=== PATIENT | male | born 1960 | race Caucasian/White ===

== ENCOUNTER 2016-11-24 18:00 | Emergency (ER) | payer OTHER ==
[~2016-11-24] VITALS: Ht 175.3 cm; Wt 95.3 kg
[2016-11-24 18:25] VITALS: BP 145/89
[2016-11-24] MEDS ORDERED: METFORMIN HCL500 M3 PO (18:50)
[2016-11-24] MEDS ORDERED: DEXILANT60 M1 PO (18:50)
[2016-11-24] MEDS ORDERED: ANASTROZOLE1 M1 PO (18:51)
[2016-11-24] MEDS ORDERED: TESTOSTERO200 MG/11 IM (18:51)
[2016-11-24] MEDS ORDERED: FAMOTIDINE40 M1 PO (18:52)
[2016-11-24] MEDS ORDERED: MULTI-DAY VITA1 EACH PO (18:53)
[2016-11-24] MEDS ORDERED: OMEPRAZOLE20 M3 PO (18:53)
[2016-11-24] MEDS ORDERED: CORAL CALCIUM1 EACH PO (18:53)
[2016-11-24] MEDS ORDERED: PROBIOTIC1 EACH PO (18:54)
[2016-11-24] MEDS ORDERED: OMEGA 3-6-9 11200 MG PO (18:54)
[2016-11-24] MEDS ORDERED: AMINO ACID1 EACH PO (18:54)
--- NOTE | 2016-11-24 19:17 | ED UPPER/LOWER EXTREMITY COMPL ---
History of Present Illness General Chief Complaint: Lower Extremity Problems Stated Complaint: SIB BY DR MATHEWS R/O BLOOD CLOT IN LEGS Source: patient, family Exam Limitations: no limitations Vital Signs & Intake/Output Vital Signs & Intake/Output Vital Signs Date Time Temp Pulse Resp B/P Pulse O2 O2 Flow FiO2 Ox Delivery Rate 11/24 1825 98.9 81 20 145/89 96 Room Air Allergies Coded Allergies: No Known Allergies (11/24/16) Reconcile Medications Amino Acids (Amino Acid) (Unknown Strength) CAPSULE (Unknown Dose) PO DAILY SUPPLEMENT (Reported) Anastrozole 1 MG TABLET 1 TAB PO DAILY ANTI-ESTROGEN (Reported) Calcium/Mag Oxide/Vitamin D3 (Coral Calcium 1,000 MG Cap) (Unknown Strength) CAPSULE (Unknown Dose) PO DAILY SUPPLEMENT (Reported) Dexlansoprazole (Dexilant) 60 MG CAP.BP 1 CAP PO DAILY MARY GRACE (Reported) Famotidine 40 MG TABLET 1 TAB PO QPM MARY GRACE (Reported) Fish Oil/Borage/Flax/Om3,6,9#1 ([place] 3-6-9 1,200 MG Softgel) (Unknown Strength) CAPSULE (Unknown Dose) PO DAILY SUPPLEMENT (Reported) Gabapentin 100 MG CAPSULE 1 CAP PO TID inflammation Ibuprofen 600 MG TABLET 1 TAB PO TID PRN pain with food Lactobacillus Acidophilus (Probiotic) (Unknown Strength) CAPSULE (Unknown Dose ) PO DAILY SUPPLEMENT (Reported) Metformin HCl 500 MG TABLET 1 TAB PO DAILY DM (Reported) Multivitamin (Multi-Day Vitamins) 1 EACH TABLET 1 TAB PO DAILY SUPPLEMENT ( Reported) Omeprazole 20 MG TABLET. 1 TAB PO DAILY MARY GRACE (Reported) Testosterone Enanthate 200 MG/ML VIAL 200 MG IM QMON HRT (Reported) Triage Note: TRIAGE: PT SENT TO ER BY DR MATHEWS TO R/O BLOOD CLOT. C/C PAIN TO BACK OF BILATERAL LEGS X 4 DAYS, INTERMITTENT SINCE ONSET, R LEG WORSE THAN L LEG. PT IS TAKING TESTOSTERONE FOR LOW T CELL COUNT X 1 YEAR AND WAS TOLD BY DR MATHEWS THAT IT COULD CAUSE BLOOD CLOTS. Triage Nurses Notes Reviewed? yes HPI: 56-year-old male arrived to triage room 7 for evaluation of bilateral thigh pain , numbness and tingling that he's had for the past 4 days. He reports that this numbness and tingling is in the back of his left thigh that gets worse when he is sitting. 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 It is gotten worse the past day so he called Dr. Mathews who told him to come to the ED for evaluation of DVT. He is currently on testosterone replacement and Dr. Mathews was concerned of clots. The patient has a history of low testosterone and Eaton's esophagus but no high blood pressure, cholesterol, heart kidney or lung issues. He does have a history of borderline diabetes on metformin for the past 5 years. He denies any back pain chest pain. He denies any swelling or redness in his legs. He does not smoke. (WILIAN LANG APRN) Past History Travel History Traveled to [place] past 21 day No Medical History Any Pertinent Medical History? 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 No (WILIAN LANG APRN) Review of Systems Review of Systems Constitutional: Reports: no symptoms. EENTM: Reports: no symptoms. Respiratory: Reports: no symptoms. Cardiovascular: Reports: no symptoms. Gastrointestinal/Abdominal: Reports: no symptoms. Genitourinary: Reports: no symptoms. Musculoskeletal: Reports: see HPI. Skin: Reports: no symptoms. Neurological/Psychological: Reports: see HPI, numbness, paresthesia. Hematologic/Endocrine: Reports: no symptoms. Immunological: Reports: no symptoms. All Other Systems: Reviewed and Negative (WILIAN LANG APRN) Physical Exam Physical Exam General Appearance: well developed/nourished, mild distress Head: atraumatic Eyes: Bilateral: PERRL, EOMI. Ears, Nose, Throat: normal pharynx, normal ENT inspection, hearing grossly normal Neck: normal inspection, supple Cardiovascular/Respiratory: regular rate/rhythm Back: normal inspection Leg Left: normal range of motion, normal inspection Leg Right: normal range of motion, normal inspection Hip Left: normal range of motion, normal inspection Hip Right: normal range of motion, normal inspection Knee Left: normal range of motion, normal inspection Knee Right: normal range of motion, normal inspection Foot Left: normal inspection, normal range of motion Foot Right: normal inspection, normal range of motion Skin: intact, normal color, warm/dry Lymphatic: no anterior cervical karen (WILIAN LANG APRN) Progress Differential Diagnosis: neuropathy Plan of Care: Ibuprofen 600 mg 3 times a day for 3 days please take with food if not any better and can start gabapentin 100 mg twice a day and follow up with Dr. Gonzalez. There is no signs of DVT, no swelling erythema Or thigh tenderness on palpation. More numbness tingling in thigh (WILIAN LANG APRN) Departure Departure Time of Disposition: 1927 Disposition: HOME OR SELF CARE Condition: Stable Clinical Impression Primary Impression: Neuropathy Referrals: TORI CHRISTIANSON,RAMAKRISHNA Carmen (PCP/Family) Additional Instructions: Ibuprofen 600 mg 3 times a day for pain. Please take with food. If pain is not better after taking ibuprofen please start gabapentin 100 mg 3 times a day and call Dr. Gonzalez for follow-up visit. Return to the emergency department for any swelling, erythema to either leg. 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 Departure Forms: Customer Survey General Discharge Information Prescriptions: Current Visit Scripts Ibuprofen 1 TAB PO TID PRN pain #30 TAB with food Gabapentin 1 CAP PO TID #60 CAP (WILIAN LANG APRN) PA/SCHEME TECHNICIAN Co-Sign Statement Statement: ED Attending supervision documentation- [] I saw and evaluated the patient. I have also reviewed all the pertinent lab results and diagnostic results. I agree with the findings and the plan of care as documented in the PA's/SCHEME TECHNICIAN's documentation. x I have reviewed the ED Record and agree with the PA's/SCHEME TECHNICIAN's documentation. [] Additions or exceptions (if any) to the PAs/SCHEME TECHNICIAN's note and plan are summarized below: [] (PATRICIO CHRISTIANSON,GEOVANI)
[2016-11-24] MEDS ORDERED: GABAPENTIN100 M2 PO (19:29)
[2016-11-24] MEDS ORDERED: IBUPROFEN600 M1 PO (19:29)
== END 2016-11-24 19:37 ==
LOC: ERH 18:00
DX: G62.9 Polyneuropathy, unspecified (principal)

== ENCOUNTER 2018-04-05 12:02 | Emergency (ER) | payer OTHER ==
[~2018-04-05] VITALS: Ht 175.3 cm; Wt 95.3 kg
[~2018-04-05 12:02] MED LIST: AMINO ACID1 EACH PO; ANASTROZOLE1 M1 PO; CORAL CALCIUM1 EACH PO; DEXILANT60 M1 PO; FAMOTIDINE40 M1 PO; GABAPENTIN100 M2 PO; IBUPROFEN600 M1 PO; METFORMIN HCL500 M3 PO; MULTI-DAY VITA1 EACH PO; OMEGA 3-6-9 11200 MG PO; OMEPRAZOLE20 M3 PO; PROBIOTIC1 EACH PO; TESTOSTERO200 MG/11 IM
[2018-04-05 12:06] VITALS: BP 139/92
--- NOTE | 2018-04-05 12:24 | ED UPPER/LOWER EXTREMITY COMPL ---
History of Present Illness General Chief Complaint: Lower Extremity Problems Stated Complaint: PER PT "FELT MY LEFT CALF POP CANT WALK" X 1 DAY Source: patient, old records Exam Limitations: no limitations Vital Signs & Intake/Output Vital Signs & Intake/Output Vital Signs Date Time Temp Pulse Resp B/P B/P Pulse O2 O2 Flow FiO2 Mean Ox Delivery Rate 04/05 1206 98.1 76 18 139/92 97 Room Air Allergies Coded Allergies: No Known Allergies (11/24/16) Reconcile Medications Amino Acids (Amino Acid) (Unknown Strength) CAPSULE (Unknown Dose) PO DAILY SUPPLEMENT (Reported) Anastrozole 1 MG TABLET 1 TAB PO DAILY ANTI-ESTROGEN (Reported) Calcium/Mag Oxide/Vitamin D3 (Coral Calcium 1,000 MG Cap) (Unknown Strength) CAPSULE (Unknown Dose) PO DAILY SUPPLEMENT (Reported) Dexlansoprazole (Dexilant) 60 MG CAP.BP 1 CAP PO DAILY MARY GRACE (Reported) Famotidine 40 MG TABLET 1 TAB PO QPM MARY GRACE (Reported) Fish Oil/Borage/Flax/Om3,6,9#1 ([place] 3-6-9 1,200 MG Softgel) (Unknown Strength) CAPSULE (Unknown Dose) PO DAILY SUPPLEMENT (Reported) Gabapentin 100 MG CAPSULE 1 CAP PO TID inflammation Ibuprofen 600 MG TABLET 1 TAB PO TID PRN pain with food Lactobacillus Acidophilus (Probiotic) (Unknown Strength) CAPSULE (Unknown Dose ) PO DAILY SUPPLEMENT (Reported) Metformin HCl 500 MG TABLET 1 TAB PO DAILY DM (Reported) Multivitamin (Multi-Day Vitamins) 1 EACH TABLET 1 TAB PO DAILY SUPPLEMENT ( Reported) Omeprazole 20 MG TABLET. 1 TAB PO DAILY MARY GRACE (Reported) Testosterone Enanthate 200 MG/ML VIAL 200 MG IM QMON HRT (Reported) Triage Note: PT TO ER C/C 1 DAY HX OF LEFT CALF PAIN, STATES WAS "PUSHING SOMETHING" AND FELT A POP. PAIN 10/10 WITH STANDING. PT WAS SENT TO ED BY URGENT CARE FOR U/S Triage Nurses Notes Reviewed? yes Onset: Abrupt Duration: day(s): (2), constant Timing: recent history Severity: moderate Severity Numbers: 6 Pain/Injury Location: Left: Leg. Associated Symptoms: denies HPI: 57-year-old male history of reflux, prediabetes, testicular cancer presents to ER for evaluation sent in by urgent care complaining of left calf pain. The patient was pushing a tractor yesterday when he had a sudden sharp shooting pain in his left calf that has been persistent since. It is worse with weightbearing and plantarflexion of the foot.. He is able to bear weight however with pain to the calf. No knee hip or back pain no numbness or tingling. He is not taken anything for his symptoms he has been putting ice on with little effect (Osman De La Torre) Past History Travel History Traveled to [place] past 21 day No Medical History Any Pertinent Medical History? 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 No (Osman De La Torre) Review of Systems Review of Systems Constitutional: Reports: see HPI. Comments Review of systems: See HPI, All other systems negative. Constitutional, no chills no fever HEENT: no sore throat no congestion Cardiovascular: No chest pain Skin: no rashes, no change in skin Respiratory: No dyspnea no cough : No dysuria No hematuria, no frequency Muscle skeletal: No joint pain, no back pain Neurologic: , no headache Heme/endocrine: No bruising (Osman De La Torre) Physical Exam Physical Exam General Appearance: well developed/nourished, alert, awake Comments: Well-developed well-nourished patient in no apparent distress. HEENT: Atraumatic, extraocular motion intact Neck: Supple, FROM Back: FROM Respiratory: No respiratory distress. Patient speaking in full complete sentences. upper Extremities: full range of motion Hip/Pelvis: Atraumatic/Stable. FROM Knee: Atraumatic/stable. FROM. No joint swelling, no effusion. No laxity. Leg: Atraumatic. Tender to palpation over the left posterior calf, pain is elicited with plantar flexion, there is no ecchymosis no hematoma no swelling, negative straight leg raise. No edema, 5 out of 5 strength in the lower extremity, normal dorsiflexion of great toe bilaterally, gross sensation is intact, Ankle/Foot: Atraumatic/stable. Skin intact. FROM. No swelling, No laxity on exam Pulses: Normal/equal DP/PT pulses bilaterally. Brisk cap refill Neuro: awake, alert, and oriented to person, place and time. There were no obvious focal neurologic abnormalities. Skin: Warm & dry;No appreciable rash on exposed skin Psych: Mood affect normal, normal memory normal judgment. (Jaleel HOPKINS,Osman) Progress Differential Diagnosis: contusion, DVT, sprain, tendon injury, achilles injury, muscle rupture Plan of Care: Orders Procedure Date/time Status US-UNILATERAL VENOUS DOPPLER 04/05 1208 Active Patient is declining anything for pain when offered ultrasounds ordered I discussed with the patient at length all of their results. Tyrese wrap applied. Advised Tylenol Motrin for pain he is ambulatory with steady gait. I had an extensive conversation regarding need for close follow up with their primary care physician this week as well as return precautions. I answered all of their questions, they feel comfortable with the plan and follow-up care. Diagnostic Imaging: Viewed by Me: Ultrasound. Discussed w/RAD: Ultrasound. Radiology Impression: PATIENT: ERMIAS HAIR PRESENT AGE: 57 PATIENT ACCOUNT NO: [id number] : 62 LOCATION: [facility] ORDERING PHYSICIAN: Osman HOPKINS SERVICE DATE: 04/05/18 EXAM TYPE: US - US- UNILATERAL VENOUS DOPPLER EXAMINATION: US TRIPLEX LOWER EXTREMITY, LEFT CLINICAL INFORMATION: 57-year-old male with left calf pain, swelling. COMPARISON: None TECHNIQUE: Color-flow triplex imaging with spectral analysis and compression Doppler were performed on the left lower extremity. FINDINGS: Respiratory variation, normal compression and augmented flow are noted throughout the lower extremity. The visualized common femoral vein, superficial femoral vein, profunda femoral vein, popliteal vein and midcalf peroneal and posterior tibial venous segments show no evidence of deep venous thrombosis. There is a 2.6 x 1.1 x 0.6 cm popliteal fossa, Santos's cyst present. In addition, within the adjacent calf muscles, there are 4 discrete focal avascular hypoechogenicities identified , measures 2.7 x 1.0 x 1.7 cm, 2.0 x 0.6 x 0.9 cm, 1.3 x 0.7 x 0.7 cm, and 2.8 x 0.4 x 1.1 cm. Given the intermuscular location, the findings would be most consistent with intramuscular injury if this patient has any recent trauma. Alternatively, in the absence of trauma, may also represent neoplasm. Further differentiation cannot be made based on this imaging appearance alone. Followup nonemergent MRI with intravenous contrast may be considered for further clarification if clinically appropriate. IMPRESSION: 1. No evidence of deep venous thrombosis at left lower extremity. 2. A 2.6 cm popliteal fossa, Santos's cyst. 3. Nonspecific multifocal intramuscular hypoechogenicities are noted within the calf muscles, differential includes posttraumatic changes versus neoplasm. Followup nonemergent MRI of the calf with intravenous contrast may be considered for further clarification, if clinically appropriate. DICTATED BY: Pernell Stevenson MD DATE/TIME DICTATED:04/05/181321 TELEPHONE SERVICES SALES REPRESENTATIVE:EVA DATE/TIME TRANSCRIBED:04/05/181321 CONFIDENTIAL, DO NOT COPY WITHOUT APPROPRIATE AUTHORIZATION. <Electronically signed in Other Vendor System> SIGNED BY: Pernell Stevenson MD 04/05/18 1450 (Osman De La Torre) Departure Departure Time of Disposition: 1453 Disposition: HOME OR SELF CARE Condition: Stable Clinical Impression Primary Impression: Gastrocnemius muscle tear Secondary Impressions: Santos cyst Referrals: Carlos CHRISTIANSON,Bryant Carmen (PCP/Family) Additional Instructions: rest, ice, tyrese wrap as discussed. keep leg elevated. follow up with your pmd, return with any concerns Departure Forms: Customer Survey General Discharge Information (Osman De La Torre) PA/SALON/SPA MANAGER Co-Sign Statement Statement: ED Attending supervision documentation- [] I saw and evaluated the patient. I have also reviewed all the pertinent lab results and diagnostic results. I agree with the findings and the plan of care as documented in the PA's/SALON/SPA MANAGER's documentation. [X] I have reviewed the ED Record and agree with the PA's/SALON/SPA MANAGER's documentation. [] Additions or exceptions (if any) to the PAs/SALON/SPA MANAGER's note and plan are summarized below: [] (Stef Garibay DO)
--- NOTE | 2018-04-05 14:50 | ULTRASOUND REPORT ---
EXAMINATION: US TRIPLEX LOWER EXTREMITY, LEFT CLINICAL INFORMATION: 57-year-old male with left calf pain, swelling. COMPARISON: None TECHNIQUE: Color-flow triplex imaging with spectral analysis and compression Doppler were performed on the left lower extremity. FINDINGS: Respiratory variation, normal compression and augmented flow are noted throughout the lower extremity. The visualized common femoral vein, superficial femoral vein, profunda femoral vein, popliteal vein and midcalf peroneal and posterior tibial venous segments show no evidence of deep venous thrombosis. There is a 2.6 x 1.1 x 0.6 cm popliteal fossa, Santos's cyst present. In addition, within the adjacent calf muscles, there are 4 discrete focal avascular hypoechogenicities identified, measures 2.7 x 1.0 x 1.7 cm, 2.0 x 0.6 x 0.9 cm, 1.3 x 0.7 x 0.7 cm, and 2.8 x 0.4 x 1.1 cm. Given the intermuscular location, the findings would be most consistent with intramuscular injury if this patient has any recent trauma. Alternatively, in the absence of trauma, may also represent neoplasm. Further differentiation cannot be made based on this imaging appearance alone. Followup nonemergent MRI with intravenous contrast may be considered for further clarification if clinically appropriate. IMPRESSION: 1. No evidence of deep venous thrombosis at left lower extremity. 2. A 2.6 cm popliteal fossa, Santos's cyst. 3. Nonspecific multifocal intramuscular hypoechogenicities are noted within the calf muscles, differential includes posttraumatic changes versus neoplasm. Followup nonemergent MRI of the calf with intravenous contrast may be considered for further clarification, if clinically appropriate.
== END 2018-04-05 14:56 ==
LOC: ERH 12:02
DX: S86.812A Strain of other muscle(s) and tendon(s) at lower leg level, left leg, initial encounter (principal); M71.22 Synovial cyst of popliteal space [Baker], left knee; X50.9XXA Other and unspecified overexertion or strenuous movements or postures, initial encounter; Y93.89 Activity, other specified; Y92.9 Unspecified place or not applicable